=== PATIENT | female | born 2000 | race Caucasian/White ===

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

== ENCOUNTER 2025-08-19 10:06 | Emergency (ER) | payer OTHER ==
[~2025-08-19] VITALS: Ht 172.7 cm; Wt 90.7 kg
[~2025-08-19 10:06] MED LIST changes: -IBUP-1022 PO; +IBUP600T42 PO
[2025-08-19] MEDS: IBUPROFEN 600 MG TAB PO ONE (12:12)
[2025-08-19] MEDS ORDERED: THERTAB52 PO (12:15)
[2025-08-19 12:35] LABS: BASO # 0.0 10^3/uL (0.0-0.2); BASO % 0.2 % (0.0-1.0); EOS # 0.1 10^3/uL (0.0-0.5); EOS % 0.4 % (0.0-3.0); LYMPH # 2.7 10^3/uL (1.5-5.0); LYMPH % 21.4 % (24.0-44.0); MONO # 0.7 10^3/uL (0.0-0.8); MONO % 5.4 % (2.0-8.0); NEUTROPHILS # 9.2 10^3/uL (1.5-8.5); NEUTROPHILS % 72.2 % (36.0-66.0); PLATELET COUNT, AUTOMATED 365 10^3/uL (150-450)
[2025-08-19 12:58] LABS: CALCIUM LEVEL 9.5 MG/DL (8.5-10.1); CARBON DIOXIDE LEVEL 26 MMOL/L (20-31); CHLORIDE LEVEL 101 MMOL/L (98-107); CREATININE FOR GFR 0.55 MG/DL (0.55-1.30); GLOMERULAR FILTRATION RATE > 90.0 (>60); HCG, SERUM QUALITATIVE POSITIVE (NEGATIVE); POTASSIUM SERUM 4.3 MMOL/L (3.5-5.1); SODIUM LEVEL 137 MMOL/L (136-145)
[2025-08-19 14:00] LABS: KETONE, URINE AUTO RFX NEGATIVE (NEGATIVE); LEUKOCYTE ESTERASE UR AUTO RFX 1+ (NEGATIVE); MUCUS, URINE RFX SMALL (NEGATIVE); NITRITE, URINE AUTO RFX NEGATIVE (NEGATIVE); RBC, URINE AUTO RFX 5 /HPF (0-3); SQUAM EPITHELIAL CELL UR AURFX 4 /HPF (0-6); WBC, URINE AUTO RFX 12 /HPF (0-3)
[2025-08-19] MEDS: RHOGAM 300MCG (1500IU) INJ IM ONE (16:47)
[2025-08-19 16:49] VITALS: BP 123/79; TEMP 98.9; O2SAT 100
[2025-08-19 17:14] VITALS: BP 127/71; TEMP 98.2; O2SAT 98
== END 2025-08-19 17:16 | disposition home or self-care (01) ==
LOC: M ED 10:06
DX: O03.9 Complete or unspecified spontaneous abortion without complication (principal)
CPT/HCPCS: 76856; 80048; 81001; 84702; 84703; 85025; 86850; 86900; 86901; 87086; 93976; 96372; 99283; J2790

== ENCOUNTER → 2025-08-22 | Outpatient (CLI) | payer OTHER ==
[~2025-08-22] MED LIST changes: +THERTAB52 PO
== END ==
LOC: M PLALAB 10:44
PROVIDERS: ATTEND Physician Assistant Medical
DX: O03.9 Complete or unspecified spontaneous abortion without complication (principal)

== ENCOUNTER → 2025-08-23 | Outpatient (CLI) | payer OTHER | LOC: M RAD 12:00 | PROVIDERS: ATTEND Advanced Practice Midwife | DX: O02.81 Inappropriate change in quantitative human chorionic gonadotropin (hCG) in early pregnancy (principal); Z3A.00 Weeks of gestation of pregnancy not specified ==

== ENCOUNTER → 2025-08-26 | Outpatient (CLI) | payer OTHER ==
[2025-08-26 16:33] LABS: ALT/SGPT 68 U/L (7.0-40); AST/SGOT 43 U/L (<34); CALCIUM LEVEL 9.5 MG/DL (8.5-10.1); CARBON DIOXIDE LEVEL 26 MMOL/L (20-31); CHLORIDE LEVEL 101 MMOL/L (98-107); CREATININE FOR GFR 0.57 MG/DL (0.55-1.30); GLOMERULAR FILTRATION RATE > 90.0 (>60); POTASSIUM SERUM 4.1 MMOL/L (3.5-5.1); SODIUM LEVEL 137 MMOL/L (136-145)
[2025-08-26 16:47] LABS: HCG, SERUM QUANTITATIVE 1816.9 MIU/ML (<4.2)
== END ==
LOC: M PLALAB 14:03
PROVIDERS: ATTEND Advanced Practice Midwife
DX: O02.81 Inappropriate change in quantitative human chorionic gonadotropin (hCG) in early pregnancy (principal); Z3A.00 Weeks of gestation of pregnancy not specified

== ENCOUNTER → 2025-08-28 | Outpatient (CLI) | payer OTHER | LOC: M RAD 14:29 | PROVIDERS: ATTEND Obstetrics & Gynecology | DX: O02.81 Inappropriate change in quantitative human chorionic gonadotropin (hCG) in early pregnancy (principal); Z3A.00 Weeks of gestation of pregnancy not specified ==

== ENCOUNTER → 2025-08-28 | Outpatient (CLI) | payer OTHER ==
[2025-08-28 13:05] LABS: PLATELET COUNT, AUTOMATED 382 10^3/uL (150-450)
[2025-08-28 13:19] LABS: ALT/SGPT 53 U/L (7.0-40); AST/SGOT 23 U/L (<34); CALCIUM LEVEL 9.3 MG/DL (8.5-10.1); CARBON DIOXIDE LEVEL 28 MMOL/L (20-31); CHLORIDE LEVEL 101 MMOL/L (98-107); CREATININE FOR GFR 0.53 MG/DL (0.55-1.30); GLOMERULAR FILTRATION RATE > 90.0 (>60); POTASSIUM SERUM 4.0 MMOL/L (3.5-5.1); SODIUM LEVEL 135 MMOL/L (136-145)
[2025-08-28 13:37] LABS: HCG, SERUM QUANTITATIVE 1700.8 MIU/ML (<4.2)
== END ==
LOC: M PLALAB 10:31
PROVIDERS: ATTEND Obstetrics & Gynecology
DX: O02.81 Inappropriate change in quantitative human chorionic gonadotropin (hCG) in early pregnancy (principal); Z3A.00 Weeks of gestation of pregnancy not specified

== ENCOUNTER 2025-08-29 08:55 | Day surgery (SDC) | payer OTHER ==
[~2025-08-29] VITALS: Ht 172.7 cm; Wt 91.4 kg
[2025-08-29 10:03] LABS: PLATELET COUNT, AUTOMATED 407 10^3/uL (150-450)
[2025-08-29] MEDS ORDERED: SUCCINYLCHOLINE 100MG/5ML SYRINGE As Ordered ONE (10:28)
[2025-08-29] MEDS ORDERED: dexAMETHasone 4 MG/ML 1 ML VIAL As Ordered ONE (10:28)
[2025-08-29] MEDS ORDERED: MIDAZOLAM INJ 2 MG/2 ML VIAL As Ordered ONE (10:28)
[2025-08-29] MEDS ORDERED: LIDOCAINE 2% 100 MG/5 ML SDV (FOR ANES.) As Ordered ONE (10:28)
[2025-08-29] MEDS ORDERED: ROCURONIUM BROMIDE 50MG/5ML VIAL As Ordered ONE (10:28)
[2025-08-29] MEDS ORDERED: SCOPOLAMINE 1MG TRANSDERMAL PATCH TOP ONE (10:30)
[2025-08-29] MEDS ORDERED: HYDROmorphone HCL 2 MG/ML 1 ML VIAL As Ordered ONE (11:26)
[2025-08-29] MEDS ORDERED: hydrALAZINE 20 MG/ML 1 ML VIAL As Ordered ONE (12:17)
[2025-08-29] MEDS ORDERED: SUGAMMADEX SODIUM 200 MG/2 ML VIAL As Ordered ONE (12:23)
[2025-08-29] MEDS ORDERED: ONDANSETRON 4MG 2ML VIAL As Ordered ONE (12:23)
[2025-08-29] MEDS ORDERED: ACETAMINOPHEN 1000MG/100ML IV BAG As Ordered ONE (12:23)
[2025-08-29] MEDS ORDERED: HYDROMORPHONE HCL 0.5 MG/0.5 ML SYRINGE IV PRN (12:40)
[2025-08-29] MEDS ORDERED: MORPHINE 4 MG/ML 1 ML VIAL IV PRN (12:40)
[2025-08-29 14:03] VITALS: BP 131/73; TEMP 97.5; O2SAT 97
== END 2025-08-29 14:36 | disposition home or self-care (01) ==
LOC: M SDC 08:55
PROVIDERS: ATTEND Obstetrics & Gynecology
DX: O00.102 Left tubal pregnancy without intrauterine pregnancy (principal); K66.1 Hemoperitoneum
CPT/HCPCS: 36415; 59151; 85027; 86850; 86870; 86900; 86901; 86920; 88305; J0131; J0330; J0665; J1100; J1171; J2250; J2405; J3010